=== PATIENT | female | born 1970 | race Caucasian/White ===

== ENCOUNTER 2017-11-23 09:55 | Day surgery (SDC) | payer OTHER ==
[2006-08-04 02:44] VITALS: BP 115/64
[~2017-11-23] VITALS: Ht 162.6 cm; Wt 86.1 kg
[~2017-11-23 09:55] MED LIST: FLEXERIL 1010 MG/TAB PO; LORTAB 5/500 501 TAB PO; MOTRIN 800800 MG/TAB PO; NO HOME MEDICATIONS; PERCOCET 325 MG1 TA2 PO; PREDNISONE20 MG PO
[2017-11-23] MEDS ORDERED: ESTRACE 1MG1 MG/TAB PO (10:00)
[2017-11-23 10:52] LABS: BASO # 0.1 (0.0-0.2); BASO % 0.6 % (0.0-2.0); EOS # 0.1 (0.0-0.7); EOS % 0.6 % (0-4.0); GRAN # 5.4 (1.4-6.5); GRAN % 57.8 % (42.2-75.2); HEMATOCRIT 40.4 % (37.0-47.0); HEMOGLOBIN 13.7 g/dl (12.5-16.0); LYMPH % 31.5 % (20.0-51.0); MEAN CELL VOLUME 91 fl (80.0-100.0); MEAN CORPUSCULAR HEMOGLOBIN 31 pg (27.0-31.0); MEAN CORPUSCULAR HGB CONC 34 g/dl (33.0-37.0); MEAN PLATELET VOLUME 9.7 fl (7.4-10.4); MONO # 0.9 (0.1-0.6); MONO % 9.2 % (1.7-9.3); PLATELET COUNT 261 K/mm3 (130-400); RED BLOOD COUNT 4.42 M/mm3 (4.10-5.30)
[2017-11-23 11:01] LABS: ALBUMIN 4.2 gm/dL (3.5-5.0); BILIRUBIN,TOTAL 0.8 mg/dL (0.0-1.0); C-REACTIVE PROTEIN 5.1 mg/dL (0.0-0.9); CALCIUM 9.3 mg/dL (8.4-10.2); CREATININE, serum 0.78 mg/dL (0.52-1.25); POTASSIUM 3.9 mmol/L (3.4-5.0); TOTAL PROTEIN 7.2 gm/dL (6.4-8.2)
[2017-11-23 14:54] VITALS: BP 113/71; PULSE 83; TEMP 98
[2017-11-23 15:09] VITALS: BP 111/60; PULSE 86
[2017-11-23 16:09] VITALS: PULSE 70
[2017-11-23] MEDS ORDERED: PERCOCET 325 MG1 TA2 PO (18:28)
== END 2017-11-23 18:46 | disposition home or self-care (01) ==
LOC: COL.ER 09:55 → SDCO 12:47 → SURG 16:23 → SDCO 18:46
PROVIDERS: Physician Assistant
DX: K35.80 Unspecified acute appendicitis (principal); Z90.710 Acquired absence of both cervix and uterus; Z90.49 Acquired absence of other specified parts of digestive tract; Z79.52 Long term (current) use of systemic steroids
CPT/HCPCS: OP; J1100; J1885; J2270; J2405; J2704; J2765; J3010; J7030; Q9967